=== PATIENT | female | born 1995 | race Caucasian/White ===

== ENCOUNTER 2018-01-20 12:09 | Emergency (ER) | payer OTHER, SELFPAY ==
--- NOTE | 2018-01-20 12:17 | ED.PREGNANCY ---
HPI - <DOMINICK Leyva - Last Filed: 01/20/18 22:31> General Chief complaint: Urogenital-Female Stated complaint: POSSIBLE MISCARRIAGE,BLOOD CLOTS Time Seen by Provider: 01/20/18 12:17 History of Present Illness HPI Narrative: 23-year-old healthy female here for complaint of having vaginal bleeding and pelvic cramping over the past 3 days. She states that her last menstrual. Was December 15 and believe that she may be and having a miscarriage. She states she has been passing clots and some tissue. Patient has not had previous . She denies any urinary symptoms. No flank pain. She states that she has used 2 pads today since this morning. Patient states she is O negative blood type. She has not had a test as of yet. MD Complaint: vaginal bleeding Related Data Allergies Allergy/AdvReac Type Severity Reaction Status Date / Time latex AdvReac Mild Verified 01/20/18 12:30 Review of Systems <DOMINICK Leyva - Last Filed: 01/20/18 22:31> Constitutional Denies chills, Denies fever(s), Denies lethargy and Denies weakness Eyes Denies change in vision, Denies eye discharge, Denies irritation and Denies loss of vision Cardiovascular Denies chest pain, Denies irregular heart rhythm, Denies lightheadedness, Denies palpitations and Denies orthopnea Gastrointestinal Gastrointestinal: Denies abdominal pain, Denies change in bowel habits, Denies diarrhea, Denies nausea and Denies vomiting Genitourinary Reports abnormal vaginal bleeding Musculoskeletal Denies back pain, Denies muscle weakness, Denies numbness and Denies tingling Integumentary/Breasts Denies pruritus, Denies erythema, Denies rash and Denies wounds Neurologic Denies confusion, Denies loss of vision, Denies numbness, Denies tingling and Denies weakness Psychiatric Denies anxiety, Denies confusion, Denies depression, Denies homicidal ideation and Denies suicidal ideation Endocrine Denies palpitations PMFSH - <DOMINICK Leyva - Last Filed: 01/20/18 22:31> Past Medical History Medical history: Reports no medical history Surgical history: Reports no surgical history Exam <DOMINICK Leyva - Last Filed: 01/20/18 22:31> Initial Vital Signs Initial Vital Signs: Vital Signs Temperature 98.4 F 01/20/18 12:26 Pulse Rate 68 01/20/18 12:26 Respiratory Rate 12 01/20/18 12:26 Blood Pressure 136/85 H 01/20/18 12:26 Pulse Oximetry 100 01/20/18 12:26 Const General: cooperative and well developed Nutritional Appearance: well nourished Orientation: alert, awake, oriented x3 and not confused HENMT Mouth: oral mucosae normal and moist mucous membranes Eyes Conjunctivae: conjunctivae normal Sclera: sclerae normal Pupils: PERRL EOM: EOM intact bilaterally Resp Effort & Inspection: normal respiratory effort, able to speak in complete sentences, no respiratory distress and no use of accessory muscles Auscultation: clear to auscultation bilaterally, no rales, no rhonchi and no wheezes Cardio Rate: regular rate Rhythm: regular rhythm Heart Sounds: no click, no gallops, no murmurs and no rubs GI Inspection: non-distended Palpation: soft, no hepatosplenomegaly, No guarding, No pulsatile mass and tender (Pelvic tenderness bilaterally) Auscultation: normal bowel sounds General: No CVA tenderness Skin General: no rashes or lesions noted, No jaundice and No petechiae <DO Valerie Rae Last Filed: 01/27/18 07:13> Initial Vital Signs Initial Vital Signs: Vital Signs Temperature 98.4 F 01/20/18 12:26 Pulse Rate 68 01/20/18 12:26 Respiratory Rate 12 01/20/18 12:26 Blood Pressure 136/85 H 01/20/18 12:26 Pulse Oximetry 100 01/20/18 12:26 Course <DOMINICK Leyva - Last Filed: 01/20/18 22:31> Orders Ordered: ED Orders 01/20/18 12:31 US pelvic complete Stat 01/20/18 12:50 Complete Blood Count AUTO DIFF Stat Comprehensive Metabolic Panel Stat HCG Quantitative Stat Vital Signs - 8 hr 01/20/18 12:26 Temperature 98.4 F Pulse Rate 68 Respiratory Rate 12 Blood Pressure 136/85 H Pulse Oximetry 100 <DO Valerie Rae Last Filed: 01/27/18 07:13> Orders Ordered: ED Orders 01/20/18 12:31 US pelvic complete Stat 01/20/18 12:50 Complete Blood Count AUTO DIFF Stat Comprehensive Metabolic Panel Stat HCG Quantitative Stat Vital Signs - 8 hr 01/20/18 12:26 Temperature 98.4 F Pulse Rate 68 Respiratory Rate 12 Blood Pressure 136/85 H Pulse Oximetry 100 MDM - OB/Uterine Contractions <Momo DOMINICK Mcrae - Last Filed: 01/20/18 22:31> Lab Data Result diagrams: 01/20/18 12:50 01/20/18 12:50 Lab Results 01/20/18 01/20/18 Range/Units 12:50 12:50 WBC 8.8 (4.5-11.0) X10^3/uL RBC 4.57 (4.0-5.2) X10^6/uL Hgb 13.5 (12.0-16.0) g/dL Hct 39.5 (36-46) % MCV 86.5 (80-100) fL MCH 29.7 (26-34) PG MCHC 34.3 (30-36) % RDW 13.2 (11.6-14.8) % Plt Count 266 (150-400) X10^3/uL Neut % (Auto) 61.8 (50-75) % Lymph % (Auto) 29.7 (25-40) % Sherman % (Auto) 7.3 (3-14) % Eos % (Auto) 0.9 L (2-4) % Baso % (Auto) 0.3 (0-2) % Neut # (Auto) 5400 (4764-1561) /uL Sodium 144 (137-145) mmol/L Potassium 3.9 (3.4-5.1) mmol/L Chloride 105 (98-107) mmol/L Carbon Dioxide 25 (22-32) mmol/L BUN 8 (7-17) mg/dL Creatinine 0.70 (0.52-1.04) mg/dL Estimated GFR > 60.0 (>60) mL/min BUN/Creatinine Ratio 11.4 (6-22) Glucose 93 (70-100) mg/dL Calcium 9.3 (8.4-10.2) mg/dL Total Bilirubin 0.6 (0.2-1.3) mg/dL AST 27 (14-36) IU/L ALT 32 (9-52) IU/L Alkaline Phosphatase 47 (38-126) U/L Total Protein 7.6 (6.3-8.2) g/dL Albumin 4.4 (3.5-5.0) g/dL Globulin 3.2 (1.7-4.1) g/dL Albumin/Globulin Ratio 1.4 (1.0-2.8) HCG, Quant < 2.39 mIU/mL Imaging Data pelvic US: Radiologist's impression: PROCEDURE: US PELVIC COMPLETE INDICATIONS: BLEEDING; NEGATIVE URINE TEST TECHNIQUE: Real-time scanning was performed of the pelvic organs, with image documentation. Additional endovaginal scanning was necessary due to incomplete visualization of the adnexal and endometrial structures by transabdominal scanning. COMPARISON: None. FINDINGS: Transabdominal scanning: Limited scanning through the kidneys shows no hydronephrosis. No pathologic free abdominal or pelvic fluid. Endovaginal scanning: Uterus: Uterus is normal in size at 3.3 x 4.3 x 7.4 cm. The endometrium measures 5.9 mm in combined thickness. Ovaries: Normal bilaterally IMPRESSION: No sign of intrauterine or ectopic . Dictated by: Kerwin Lewis M.D. on 01/20/2018 at 13:23 Approved by: Kerwin Lewis M.D. on 01/20/2018 at 13:23 MDM Narrative Medical decision making narrative: POC urine was negative for urinary tract infection or . CBC and Chem panel were obtained were unremarkable. Pelvic ultrasound was obtained and was negative for any acute findings and negative for intrauterine or ectopic. Quant HCG was obtained and was negative for . Signs and symptoms presents as menstrual period with heavier flow than normal for her and cramping. [id number] Tylenol or Motrin as needed for any discomfort. Follow up with primary care provider in the next few days for re-evaluation. For any worsening symptoms return emergency room for <Abisai Castro DO - Last Filed: 01/27/18 07:13> Lab Data Lab Results 01/20/18 01/20/18 Range/Units 12:50 12:50 WBC 8.8 (4.5-11.0) X10^3/uL RBC 4.57 (4.0-5.2) X10^6/uL Hgb 13.5 (12.0-16.0) g/dL Hct 39.5 (36-46) % MCV 86.5 (80-100) fL MCH 29.7 (26-34) PG MCHC 34.3 (30-36) % RDW 13.2 (11.6-14.8) % Plt Count 266 (150-400) X10^3/uL Neut % (Auto) 61.8 (50-75) % Lymph % (Auto) 29.7 (25-40) % Sherman % (Auto) 7.3 (3-14) % Eos % (Auto) 0.9 L (2-4) % Baso % (Auto) 0.3 (0-2) % Neut # (Auto) 5400 (8872-1749) /uL Sodium 144 (137-145) mmol/L Potassium 3.9 (3.4-5.1) mmol/L Chloride 105 (98-107) mmol/L Carbon Dioxide 25 (22-32) mmol/L BUN 8 (7-17) mg/dL Creatinine 0.70 (0.52-1.04) mg/dL Estimated GFR > 60.0 (>60) mL/min BUN/Creatinine Ratio 11.4 (6-22) Glucose 93 (70-100) mg/dL Calcium 9.3 (8.4-10.2) mg/dL Total Bilirubin 0.6 (0.2-1.3) mg/dL AST 27 (14-36) IU/L ALT 32 (9-52) IU/L Alkaline Phosphatase 47 (38-126) U/L Total Protein 7.6 (6.3-8.2) g/dL Albumin 4.4 (3.5-5.0) g/dL Globulin 3.2 (1.7-4.1) g/dL Albumin/Globulin Ratio 1.4 (1.0-2.8) HCG, Quant < 2.39 mIU/mL Discharge Plan Departure Patient Disposition: Home, Self-Care Clinical Impression: Dysmenorrhea Discharge Date/Time: 01/20/18 14:01 Interventions: ED Discharge Assessment Last Done: 01/20/18 14:01 Instructions: DI for Dysmenorrhea Activity Restrictions/Additional Instructions: Laboratory results were normal today. Negative tests today. Ultrasound was obtained and was normal with no indications of . Signs and symptoms presents as pain and vaginal bleeding due to menstrual cycle. Use [id number] Tylenol Motrin as needed for any discomfort. Follow up with primary care provider later this week for re-evaluation. For any worsening symptoms return to the emergency room. Referrals: Jo Lowery MD [Physician] - <Abisai Castro DO - Last Filed: 01/27/18 07:13> Cosign ED Attending [place] Attestation: I was available for consultation during this patient's emergency department encounter
[2018-01-20 12:26] VITALS: BP 136/85; PULSE 68; RESP 12; TEMP 36.9; O2SAT 100
--- NOTE | 2018-01-20 12:31 | DI.US.S_ITS ---
PROCEDURE: US PELVIC COMPLETE INDICATIONS: BLEEDING; NEGATIVE URINE TEST TECHNIQUE: Real-time scanning was performed of the pelvic organs, with image documentation. Additional endovaginal scanning was necessary due to incomplete visualization of the adnexal and endometrial structures by transabdominal scanning. COMPARISON: None. FINDINGS: Transabdominal scanning: Limited scanning through the kidneys shows no hydronephrosis. No pathologic free abdominal or pelvic fluid. Endovaginal scanning: Uterus: Uterus is normal in size at 3.3 x 4.3 x 7.4 cm. The endometrium measures 5.9 mm in combined thickness. Ovaries: Normal bilaterally IMPRESSION: No sign of intrauterine or ectopic . Dictated by: Kerwin Lewis M.D. on 01/20/2018 at 13:23 Approved by: Kerwin Lewis M.D. on 01/20/2018 at 13:23
[2018-01-20 13:06] LABS: Add Manual Diff / Slide Review NO; Basophils Percent Auto 0.3 % (0-2); Eosinophils Percent Auto 0.9 % (2-4); Hematocrit 39.5 % (36-46); Hemoglobin 13.5 g/dL (12.0-16.0); Lymphocytes Percent Auto 29.7 % (25-40); Mean Corpuscular HGB Conc 34.3 % (30-36); Mean Corpuscular Hemoglobin 29.7 PG (26-34); Mean Corpuscular Volume 86.5 fL (80-100); Monocytes Percent Auto 7.3 % (3-14); Neutrophils Absolute Auto 5400 /uL (3000-5900); Neutrophils Percent Auto 61.8 % (50-75); Platelet Count 266 X10^3/uL (150-400); Red Blood Cell Count 4.57 X10^6/uL (4.0-5.2); Red Cell Distribution Width 13.2 % (11.6-14.8); White Blood Cell Count 8.8 X10^3/uL (4.5-11.0)
[2018-01-20 13:23] LABS: Alanine Aminotransferase 32 IU/L (9-52); Albumin 4.4 g/dL (3.5-5.0); Albumin Globulin Ratio 1.4 (1.0-2.8); Alkaline Phosphatase 47 U/L (38-126); Aspartate Aminotransferase 27 IU/L (14-36); BUN Creatinine Ratio 11.4 (6-22); Bilirubin Total 0.6 mg/dL (0.2-1.3); Blood Urea Nitrogen 8 mg/dL (7-17); Calcium 9.3 mg/dL (8.4-10.2); Carbon Dioxide 25 mmol/L (22-32); Chloride 105 mmol/L (98-107); Estimated Glomerular Filt Rate > 60.0 mL/min (>60); Globulin 3.2 g/dL (1.7-4.1); Glucose 93 mg/dL (70-100); HEMOLYSIS < 15 (0-50); Potassium 3.9 mmol/L (3.4-5.1); Sodium 144 mmol/L (137-145); Total Protein 7.6 g/dL (6.3-8.2)
[2018-01-20 13:38] LABS: HCG Quantitative /Beta subunit < 2.39 mIU/mL
== END 2018-01-20 14:01 | disposition home or self-care (01) ==
PROVIDERS: Emergency Provider Nurse Practitioner Family
DX: N94.6 Dysmenorrhea, unspecified (principal)
CPT/HCPCS: 36415; 76830; 76856; 80053; 81003; 81025; 84702; 85025; 99282; 99284